=== PATIENT | female | born 1985 | race Caucasian/White ===

== ENCOUNTER 2016-12-31 23:35 | Emergency (ER) | payer BC ==
--- NOTE | 2017-01-01 00:10 | EDM.PDOC ---
ED HPI GENERAL MEDICAL PROBLEM - General Chief Complaint: General Stated Complaint: vag bleeding Time Seen by Provider: 12/31/16 23:52 Source of Information: Reports: Patient History Limitations: Reports: No Limitations - History of Present Illness INITIAL COMMENTS - FREE TEXT/NARRATIVE: Patient presents with complaint of vaginal bleeding 9 days s/p . The bleeding has been steady since she was in the hospital with her delivery. She is soaking 1-2 pads each day. She is concerned because tonight the blood looked bright red instead of darker like it has been recently. Also it had an odor. She denies any increase in amount or flow of blood. No vaginal drainage except the blood. She denies weakness or dysuria. She has had some occasions of pain along her abdominal incision. No fever. Abdomen Pain Score (Numeric/FACES): 2 - Related Data Allergies Allergy/AdvReac Type Severity Reaction Status Date / Time calcium carbonate [From Tums] Allergy Difficulty Verified 06/04/16 19:56 Swallowing prednisone Allergy Rash Verified 06/04/16 19:56 rifampin Allergy Rash Verified 06/04/16 19:56 control pill Allergy Intermediate Hallucinati Uncoded 06/07/16 11:55 ons Home Meds: Home Meds Sertraline [Zoloft] 50 mg PO BEDTIME 12/11/14 [History] Cholecalciferol (Vitamin D3) [Vitamin D3] 1 tab PO DAILY 05/20/16 [History] Past Medical History - Past Health History Medical/Surgical History: Denies Medical/Surgical History HEENT History: Reports: Impaired Vision Gastrointestinal History: Reports: Chronic Constipation, GERD Other Genitourinary History: yeast infection 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: Psychiatric History: Reports: Anxiety, Depression - Infectious Disease History Infectious Disease History: Reports: Chicken Pox - Past Surgical History GI Surgical History: Reports: Cholecystectomy, Colonoscopy Other Musculoskeletal Surgeries/Procedures:: Right knee fx and repair Social & Family History - Family History Cardiac: Reports: [place] Other Cardiac Family History: grandfather, x5 Psychiatric: Reports: Anxiety, Depression, Schizophrenia Endocrine/Metabolic: Reports: Diabetes, type II Oncologic: Reports: Breast, Ovarian, Other (See Below) Other Oncologic Family History: dad has skin ca, grandma breast - Tobacco Use Smoking Status *Q: Never Smoker Second Hand Smoke Exposure: No - Caffeine Use Caffeine Use: Reports: Coffee - Alcohol Use Days Per Week of Alcohol Use: 0 - Recreational Drug Use Recreational Drug Use: No ED ROS GENERAL - Review of Systems Review Of Systems: ROS reveals no pertinent complaints other than HPI. ED EXAM, GENERAL - Physical Exam Exam: See Below Exam Limited By: No Limitations General Appearance: Alert, WD/WN, No Apparent Distress Eye Exam: Bilateral Eye: EOMI, Normal Inspection, PERRL Ears: Normal External Exam, Hearing Grossly Normal Nose: Normal Inspection, No Blood Throat/Mouth: Normal Inspection, Normal Lips, Normal Voice, No Airway Compromise Head: Atraumatic, Normocephalic Neck: Normal Inspection, Full Range of Motion Respiratory/Chest: No Respiratory Distress, Lungs Clear, Normal Breath Sounds Cardiovascular: Regular Rate, Rhythm, No Murmur GI/Abdominal: Normal Bowel Sounds, Soft, No Organomegaly, No Distention, Tender (tender to palpate directly over the suprapubic incision.), Other (Recent- appearing transverse suprapubic incision consistent with caesarean that is healing very nicely with no erythema, drainage or dehiscence.) Back Exam: Normal Inspection, Full Range of Motion. No: CVA Tenderness (L), CVA Tenderness (R) Extremities: Normal Inspection Neurological: Alert, Oriented, Normal Cognition, Normal Gait, No Motor/Sensory Deficits Psychiatric: Normal Affect, Normal Mood Skin Exam: Warm, Dry, Intact, Normal Color, No Rash Course - Vital Signs Last Recorded V/S: Last Vital Signs Temp 97.5 F 01/01/17 00:23 Pulse 65 01/01/17 00:23 Resp 18 01/01/17 00:23 BP 135/80 01/01/17 00:23 Pulse Ox 97 01/01/17 00:23 - Orders/Labs/Meds Labs: Laboratory Tests 01/01/17 01/01/17 Range/Units 00:15 00:20 WBC 7.6 (5.0-10.0) 10^3/uL RBC 4.72 (3.80-5.50) 10^6/uL Hgb 13.0 (12.0-16.0) g/dL Hct 39.2 (37.0-47.0) % MCV 83.1 (82.0-92.0) fL MCH 27.5 (27.0-31.0) pg MCHC 33.1 (32.0-36.0) g/dL RDW 15.5 H (11.5-14.5) % Plt Count 402 H (150-300) 10^3/uL MPV 6.6 L (7.4-10.4) fL Neut % (Auto) 62.9 (50.0-70.0) % Lymph % (Auto) 22.3 (20.0-40.0) % [place] % (Auto) 10.2 H (2.0-8.0) % Eos % (Auto) 3.7 H (1.0-3.0) % Baso % (Auto) 0.9 (0.0-1.0) % Neut # (Auto) 4.7 (2.5-7.0) 10^3/uL Lymph # (Auto) 1.7 (1.0-4.0) 10^3/uL [place] # (Auto) 0.8 (0.1-0.8) 10^3/uL Eos # (Auto) 0.3 (0.1-0.3) 10^3/uL Baso # (Auto) 0.1 (0.0-0.1) 10^3/uL Specimen Type Urincc Urine Color Yellow (YELLOW) Urine Appearance Clear (CLEAR) Urine pH 5.5 (5.0-9.0) Ur Specific [place] 1.020 (1.005-1.030) Urine Protein Negative (NEGATIVE) mg/dL Urine Glucose (UA) Negative (NEGATIVE) mg/dL Urine Ketones Negative (NEGATIVE) mg/dL Urine Occult Blood Large H (NEGATIVE) Urine Nitrite Negative (NEGATIVE) Urine Bilirubin Negative (NEGATIVE) Urine Urobilinogen 0.2 (0.2-1.0) E.U./dL Ur Leukocyte Esterase Negative (NEGATIVE) Urine RBC 10-20 H /HPF Urine WBC 0-5 /HPF Ur Epithelial Cells Few /LPF - Re-Assessments/Exams Free Text/Narrative Re-Assessment/Exam: 01/01/17 00:45 UA shows hematuria but no sign of infection. CBC is normal with Hg 13.0. Discussed findings and recommendations with patient and she was discharged in stable condition. Departure - Departure Time of Disposition: 00:41 Disposition: Home, Self-Care 01 Condition: Good Clinical Impression: hemorrhage of vagina - Discharge Information Forms: ED Department Discharge Additional Instructions: 1. Keep track of bleeding amounts and number of soaked pads per day. 2. Follow up with your OB or PCP on Tuesday. 3. If bleeding exceeds 4 pads per day, or you develop fever, see your doctor right away or go to ER.
[2017-01-01 00:28] VITALS: BP 135/80
== END 2017-01-01 00:50 | disposition home or self-care (01) ==
LOC: KA.ED 23:35
DX: O72.1 Other immediate postpartum hemorrhage (principal); O99.345 Other mental disorders complicating the puerperium; H54.7 Unspecified visual loss; K21.9 Gastro-esophageal reflux disease without esophagitis; F32.9 Major depressive disorder, single episode, unspecified; Z90.49 Acquired absence of other specified parts of digestive tract; Z88.8 Allergy status to other drugs, medicaments and biological substances; Z79.899 Other long term (current) drug therapy; F41.9 Anxiety disorder, unspecified
CPT/HCPCS: 36415; 81001; 85025; 99284

== ENCOUNTER 2020-03-11 18:40 | Emergency (ER) | payer BC, OTHER ==
--- NOTE | 2020-03-11 18:57 | EDM.PDOC ---
ED HPI GENERAL MEDICAL PROBLEM - General Chief Complaint: Behavioral/Psych Stated Complaint: psychosis Time Seen by Provider: 03/11/20 18:57 Source of Information: Reports: Patient, Family History Limitations: Reports: No Limitations - History of Present Illness INITIAL COMMENTS - FREE TEXT/NARRATIVE: Rosa Maria Slaughter, 34-year-old female, was brought by her family members, and sister to the emergency department this evening. Her states that while he was driving home today she had called him stating she had made supper, done laundry, and was tired and was going to lay down. She sounded completely rational in her statements and discussion. When her arrived home, she was not in any of the beds and could not be found. He went into the bathroom and found her sleeping in the bathtub. He awoken her to ask what she was doing to which she stated "I have done my job, I am leaving,and going to kill myself." After getting out of the bathroom she had a ranch and when asked what she was doing she stated "the voices had told her that her foot was broken and she needed to take it off." When her commented that her wrench would not take her foot off she stated then she would go in the garage and get a saw. At this time he decided that she needed medical attention and she agreed to get in the car under the fact that they would be running an errand. On the way to the hospital she decided she no longer wanted to be in a car and try to get out causing him to well puller to the side of the road get her settled again in the car at which time they drove to her sister's home. Her Sister Jolene is an RN here at our facility and had her get in her van as they were going to drive up here to cherry picker operator papers. She was quite emotional upon her arrival with nursing staff but did come down significantly by the time my arrival to the department. She recalled the almost identical story to me when I asked what is been going on. I explained to her after my assessment that it would be beneficial if we ran a few tests to which she agreed upon. Onset: Today, Sudden Duration: Minutes: Location: Reports: Head - Related Data Allergies Allergy/AdvReac Type Severity Reaction Status Date / Time calcium carbonate [From Tums] Allergy Difficulty Verified 03/11/20 19:51 Swallowing prednisone Allergy Rash Verified 03/11/20 19:51 rifampin Allergy Rash Verified 03/11/20 19:51 triamcinolone Allergy Cannot Verified 03/11/20 19:51 Remember control pill Allergy Intermediate Hallucinati Uncoded 03/11/20 19:51 ons Home Meds: Home Meds Sertraline [Zoloft] 200 mg PO BEDTIME 12/11/14 [History] Cholecalciferol (Vitamin D3) [Vitamin D3] 1 tab PO DAILY 05/20/16 [History] Acetaminophen [Tylenol] 650 mg PO Q6H PRN 03/11/20 [History] Albuterol [Proventil Neb Soln] 0.63 mg NEB Q6H PRN 03/11/20 [History] Famotidine [Pepcid] 20 mg PO BEDTIME 03/11/20 [History] Ibuprofen 200 - 600 mg PO TID PRN 03/11/20 [History] L.acidoph,Paracasei, B.lactis [Probiotic] 1 cap PO DAILY 03/11/20 [History] Lurasidone [Latuda] 20 mg PO BEDTIME 03/11/20 [History] [place]-3/DHA/Epa/Fish Oil [[place] 3 500 Softgel] 2 cap PO DAILY 03/11/20 [History] busPIRone [Buspar] 5 mg PO BID 03/11/20 [History] busPIRone [Buspar] 10 mg PO BID 03/11/20 [History] hydrOXYzine pamoate [Vistaril] 25 mg PO Q6H PRN 03/11/20 [History] Past Medical History - Past Health History Medical/Surgical History: Denies Medical/Surgical History HEENT History: Reports: Impaired Vision Gastrointestinal History: Reports: Chronic Constipation, GERD Other 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: Psychiatric History: Reports: Anxiety, Depression, Schizophrenia - Infectious Disease History Infectious Disease History: Reports: Chicken Pox - Past Surgical History GI Surgical History: Reports: Cholecystectomy, Colonoscopy Other Musculoskeletal Surgeries/Procedures:: Right knee fx and repair Social & Family History - Family History Family Medical History: Noncontributory Cardiac: Reports: [place] Other Cardiac Family History: grandfather, x5 Psychiatric: Reports: Anxiety, Depression, Schizophrenia Endocrine/Metabolic: Reports: Diabetes, type II Oncologic: Reports: Breast, Ovarian, Other (See Below) Other Oncologic Family History: dad has skin ca, grandma breast - Caffeine Use Caffeine Use: Reports: Coffee ED ROS GENERAL - Review of Systems Review Of Systems: Comprehensive ROS is negative, except as noted in HPI. ED EXAM, GENERAL - Physical Exam Exam: See Below Free Text/Narrative:: Alert and conversive oriented to the hospital and knowing that her sister works here. When I asked her what was taking place she stated the voices had told her that her leg was broke and she needed to take her foot off. She also stated that she had been hearing voices on and off and stated that at one point, her sister was sitting next to her with a noose around her neck stating she was going with her. When I asked how many sisters she had she states 1 and points to Jolene. I am uncertain of what the name of her sister was that had a noose around her neck but it was not Jolene. She denies any intake of anything other than her regular medications. States she did laundry today and was making supper both of which were confirmed by her . There is no odor of alcohol drugs or any evidence of bodily injury during the examination. HEENT is negative discharge or deformity PERRLA no nystagmus, no icterus no injection. Extraocular motions intact. Moist mucous membranes Neck soft supple no lymphadenopathy no rigidity. Symmetry is noted during her speech with no deviation. Thorax is clear no wheezes or crackles are noted. Cardiac is S1-S2 no noted murmur. No flank pain no abdominal discomfort moves her extremities about while in a seated position. 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 I attempted to a Romberg and but which she has a straightened outstretched left upper extremity but the right bends at the elbow and droops as well as wrist droop with slight tremoring. I asked her to straighten the arm and tell her she has to hold her fingers at the same height to which she replies I am trying. Very weak both inward outward motion as well as up-and-down of outstretched extremity with a greater deficit to the right side as well as tremoring to the right upper extremity. Skin is warm and dry radial pulses are present capillary refill is intact. As lab and urine are obtained awaiting for results and CT is performed, she seems to become more coherent and does not refer to hearing voices at that time. By the time all results have arrived, stabilization of her mentation and senses occurs and has been appropriately visiting with her and sister. Contact is made to the [facility] call to see if her primary psychiatric doctors vice president of instruction, unfortunately he is not and there are no psychiatric beds available at the facility. Decision that she will go home with family members that her sister will in co njunction with her provide supervision throughout the night contacting [facility] service in the morning to discuss with her primary psychiatrist. Course - Vital Signs Last Recorded V/S: Last Vital Signs Temp 37.4 C 03/11/20 18:40 Pulse 87 03/11/20 18:40 Resp 18 03/11/20 18:40 BP 107/67 03/11/20 18:40 Pulse Ox 98 03/11/20 18:40 - Orders/Labs/Meds Orders: Active Orders 24 hr Category Date Time Status CULTURE URINE [RM] Stat Lab 03/11/20 19:10 Received Labs: Laboratory Tests 03/11/20 03/11/20 03/11/20 Range/Units 19:10 19:10 19:32 WBC (5.00-10.00) 10^3/uL RBC (3.80-5.50) 10^6/uL Hgb (12.0-16.0) g/dL Hct (37.0-47.0) % MCV (82.0-92.0) fL MCH (27.0-31.0) pg MCHC (32.0-36.0) g/dL RDW (11.5-14.5) % Plt Count (150-400) 10^3/uL MPV (7.4-10.4) fL Immature Gran % (Auto) (0.0-5.0) % Neut % (Auto) (50.0-70.0) % Lymph % (Auto) (20.0-40.0) % [place] % (Auto) (2.0-8.0) % Eos % (Auto) (1.0-3.0) % Baso % (Auto) (0.0-1.0) % Neut # (Auto) (2.50-7.00) 10^3/uL Lymph # (Auto) (1.00-4.00) 10^3/uL [place] # (Auto) (0.10-0.80) 10^3/uL Eos # (Auto) (0.10-0.30) 10^3/uL Baso # (Auto) (0.00-0.10) 10^3/uL Immature Gran # (Auto) (0.00-0.50) 10^3/uL Sodium 139 (136-145) mmol/L Potassium 3.4 (3.3-5.3) mmol/L Chloride 103 (98-115) mmol/L Carbon Dioxide 23.2 (21.0-32.0) mmol/L Anion Gap 16.2 H (5-15) mmol/L BUN 13 (6-25) mg/dL Creatinine 0.71 (0.51-1.17) mg/dL Est Cr Clr Drug Dosing 109.59 mL/min Estimated GFR (MDRD) > 60 mL/min Glucose 116 H (75 - 99) mg/dL Calcium 8.1 L (8.7-10.3) mg/dL Total Bilirubin 0.2 (0.2-1.0) mg/dL AST 15 (15-37) U/L ALT 16 (12-78) U/L Alkaline Phosphatase 90 (46-116) IU/L Total Protein 7.1 (6.4-8.2) g/dL Albumin 3.85 (3.00-4.80) g/dL Specimen Type Urincc Urine Color Yellow (YELLOW) Urine Appearance Slightly cloudy H (CLEAR) Urine pH 5.5 (5.0-9.0) Ur Specific [place] >= 1.030 (1.005-1.030) Urine Protein Negative (NEGATIVE) mg/dL Urine Glucose (UA) Negative (NEGATIVE) mg/dL Urine Ketones Negative (NEGATIVE) mg/dL Urine Occult Blood Small H (NEGATIVE) Urine Nitrite Negative (NEGATIVE) Urine Bilirubin Negative (NEGATIVE) Urine Urobilinogen 0.2 (0.2-1.0) E.U./dL Ur Leukocyte Esterase Trace H (NEGATIVE) Urine RBC 0-5 (0-5) /HPF Urine WBC 0-5 (0-5) /HPF Ur Epithelial Cells Few /LPF Urine Bacteria Few (NONE TO FEW) /HPF Urine Opiates Screen Negative (NEGATIVE) Ur Oxycodone Screen Negative (NEGATIVE) Urine Methadone Screen Negative (NEGATIVE) Ur Propoxyphene Screen Negative (NEGATIVE) Acetaminophen 0.0 L (10.0-30.0) ug/mL Ur Barbiturates Screen Negative (NEGATIVE) Ur Tricyclics Screen Negative (NEGATIVE) Ur Phencyclidine Scrn Negative (NEGATIVE) Ur Amphetamine Screen Negative (NEGATIVE) U Methamphetamines Scrn Negative (NEGATIVE) U Benzodiazepines Scrn Negative (NEGATIVE) U Cocaine Metab Screen Negative (NEGATIVE) U Marijuana (THC) Screen Negative (NEGATIVE) 03/11/20 Range/Units 19:32 WBC 9.22 (5.00-10.00) 10^3/uL RBC 5.06 (3.80-5.50) 10^6/uL Hgb 14.9 (12.0-16.0) g/dL Hct 43.0 (37.0-47.0) % MCV 85.0 (82.0-92.0) fL MCH 29.4 (27.0-31.0) pg MCHC 34.7 (32.0-36.0) g/dL RDW 13.0 (11.5-14.5) % Plt Count 279 (150-400) 10^3/uL MPV 8.8 (7.4-10.4) fL Immature Gran % (Auto) 0.1 (0.0-5.0) % Neut % (Auto) 71.3 H (50.0-70.0) % Lymph % (Auto) 18.5 L (20.0-40.0) % [place] % (Auto) 6.8 (2.0-8.0) % Eos % (Auto) 2.6 (1.0-3.0) % Baso % (Auto) 0.7 (0.0-1.0) % Neut # (Auto) 6.57 (2.50-7.00) 10^3/uL Lymph # (Auto) 1.71 (1.00-4.00) 10^3/uL [place] # (Auto) 0.63 (0.10-0.80) 10^3/uL Eos # (Auto) 0.24 (0.10-0.30) 10^3/uL Baso # (Auto) 0.06 (0.00-0.10) 10^3/uL Immature Gran # (Auto) 0.01 (0.00-0.50) 10^3/uL Sodium (136-145) mmol/L Potassium (3.3-5.3) mmol/L Chloride (98-115) mmol/L Carbon Dioxide (21.0-32.0) mmol/L Anion Gap (5-15) mmol/L BUN (6-25) mg/dL Creatinine (0.51-1.17) mg/dL Est Cr Clr Drug Dosing mL/min Estimated GFR (MDRD) mL/min Glucose (75 - 99) mg/dL Calcium (8.7-10.3) mg/dL Total Bilirubin (0.2-1.0) mg/dL AST (15-37) U/L ALT (12-78) U/L Alkaline Phosphatase (46-116) IU/L Total Protein (6.4-8.2) g/dL Albumin (3.00-4.80) g/dL Specimen Type Urine Color (YELLOW) Urine Appearance (CLEAR) Urine pH (5.0-9.0) Ur Specific [place] (1.005-1.030) Urine Protein (NEGATIVE) mg/dL Urine Glucose (UA) (NEGATIVE) mg/dL Urine Ketones (NEGATIVE) mg/dL Urine Occult Blood (NEGATIVE) Urine Nitrite (NEGATIVE) Urine Bilirubin (NEGATIVE) Urine Urobilinogen (0.2-1.0) E.U./dL Ur Leukocyte Esterase (NEGATIVE) Urine RBC (0-5) /HPF Urine WBC (0-5) /HPF Ur Epithelial Cells /LPF Urine Bacteria (NONE TO FEW) /HPF Urine Opiates Screen (NEGATIVE) Ur Oxycodone Screen (NEGATIVE) Urine Methadone Screen (NEGATIVE) Ur Propoxyphene Screen (NEGATIVE) Acetaminophen (10.0-30.0) ug/mL Ur Barbiturates Screen (NEGATIVE) Ur Tricyclics Screen (NEGATIVE) Ur Phencyclidine Scrn (NEGATIVE) Ur Amphetamine Screen (NEGATIVE) U Methamphetamines Scrn (NEGATIVE) U Benzodiazepines Scrn (NEGATIVE) U Cocaine Metab Screen (NEGATIVE) U Marijuana (THC) Screen (NEGATIVE) - Re-Assessments/Exams Free Text/Narrative Re-Assessment/Exam: 03/11/20 21:29 No interventions nor medications were required during the assessment work-up phase. Family members agree as her primary is not available vice president of instruction from [facility] and no beds available that they would assume care taking her home with them this evening. Departure - Departure Time of Disposition: 20:41 Disposition: Home, Self-Care 01 Condition: Good Clinical Impression: Anxiety and depression, Hallucinations Schizophrenia Qualifiers: Schizophrenia type: unspecified Qualified Code(s): F20.9 - Schizophrenia, unspecified - Discharge Information *PRESCRIPTION DRUG MONITORING PROGRAM REVIEWED*: Not Applicable *COPY OF PRESCRIPTION DRUG MONITORING REPORT IN PATIENT LUIS: Not Applicable Instructions: Major Depressive Disorder, Adult, [id number], Schizophrenia, Living With Anxiety Referrals: Richardson Coleman MD [Ordering Only Provider] - Forms: ED Department Discharge Additional Instructions: You need to continue all of your medications as directed. Decrease and avoid excess caffeine. You will spend the night with your sister in contact Dr. Coleman in the morning to discuss the occurrence tonight. If you have another flareup before then you need to consider coming back to the emergency department. When you go to the [facility] to see your regular provider, you need to mention to them your sleep patterns and the possibility of having a sleep study performed. Call or return if any concerns arise. Sepsis Event Note (ED) - Focused Exam Vital Signs: Vital Signs Temp Pulse Resp BP Pulse Ox 03/11/20 18:40 37.4 C 87 18 107/67 98 - Problem List & Annotations (1) Anxiety and depression SNOMED Code(s): 399005964 Code(s): F41.9 - ANXIETY DISORDER, UNSPECIFIED; F32.9 - MAJOR DEPRESSIVE DISORDER, SINGLE EPISODE, UNSPECIFIED Status: Chronic Priority: High (2) Schizophrenia SNOMED Code(s): 73029032 Code(s): F20.9 - SCHIZOPHRENIA, UNSPECIFIED Status: Chronic Priority: High Qualifiers: Schizophrenia type: unspecified Qualified Code(s): F20.9 - Schizophrenia, unspecified - Problem List Review Problem List Initiated/Reviewed/Updated: Yes - My Orders Last 24 Hours: My Active Orders 03/11/20 19:10 CULTURE URINE [RM] Stat - Assessment/Plan Last 24 Hours: My Active Orders 03/11/20 19:10 CULTURE URINE [RM] Stat Plan: You need to continue all of your medications as directed. Decrease and avoid excess caffeine. You will spend the night with your sister in contact Dr. Coleman in the morning to discuss the occurrence tonight. If you have another flareup before then you need to consider coming back to the emergency department. When you go to the [facility] to see your regular provider, you need to mention to them your sleep patterns and the possibility of having a sleep study performed. Call or return if any concerns arise.
[2020-03-11 19:07] VITALS: BP 107/67; PULSE 87
[2020-03-11 19:52] LABS: BARBITURATE SCREEN,URINE NEGATIVE (NEGATIVE); BENZODIAZEPINES SCREEN,URINE NEGATIVE (NEGATIVE); TCA SCREEN,URINE NEGATIVE (NEGATIVE); THC SCREEN,URINE 50 NG/ML NEGATIVE (NEGATIVE)
[2020-03-11 19:58] LABS: ANION GAP 16.2 mmol/L (5-15); CHLORIDE,CL 103 mmol/L (98-115); SODIUM,NA 139 mmol/L (136-145)
--- NOTE | 2020-03-11 20:21 | CT ---
[id number] CT/CT Head WO IV EXAM: CT Head WO IV CLINICAL DATA: IMBALANCE COMPARISON STUDY: November 23, 2008 FINDINGS: No intracranial hemorrhage, extra-axial fluid collection, mass, or acute ischemia. Soft tissues are unremarkable. Paranasal sinuses and mastoid air cells are clear. IMPRESSION: No acute intracranial findings. Kash Cabral DO 03/12/20 [id number] Thank you for allowing us to participate in the care of your patient.
== END 2020-03-11 20:47 | disposition home or self-care (01) ==
LOC: KA.ED 18:40
DX: F41.9 Anxiety disorder, unspecified (principal); F32.9 Major depressive disorder, single episode, unspecified; F20.9 Schizophrenia, unspecified; K21.9 Gastro-esophageal reflux disease without esophagitis; Z90.49 Acquired absence of other specified parts of digestive tract; Z91.09 Other allergy status, other than to drugs and biological substances; Z88.8 Allergy status to other drugs, medicaments and biological substances; Z88.1 Allergy status to other antibiotic agents; Z79.899 Other long term (current) drug therapy
CPT/HCPCS: 36415; 70450; 80053; 80305-QW; 80307; 81001; 85025; 87086; 99285; 99285-25

== ENCOUNTER 2020-06-26 15:31 | Emergency (ER) | payer BC ==
[2020-06-26] MEDS ORDERED: Sodium Chloride 0.9% 10 ML Syringe FLUSH PRN (16:01)
[2020-06-26 16:31] VITALS: BP 108/78; PULSE 88
[2020-06-26 16:32] LABS: ANION GAP 9.7 mmol/L (5-15); CHLORIDE,CL 103 mmol/L (98-107); SODIUM,NA 136 mmol/L (136-145)
--- NOTE | 2020-06-26 16:43 | EDM.PDOC ---
ED HPI GENERAL MEDICAL PROBLEM - General Chief Complaint: General Stated Complaint: COVID Time Seen by Provider: 06/26/20 16:04 Source of Information: Reports: Patient History Limitations: Reports: No Limitations - History of Present Illness INITIAL COMMENTS - FREE TEXT/NARRATIVE: Patient presents with wheezing that started today. She also got results on her Covid test about 5 hours ago from 2 days earlier. She was tested because her was positive. She has asthma but hasn't used her inhaler for awhile and doesn't have one currently. - Related Data Allergies Allergy/AdvReac Type Severity Reaction Status Date / Time calcium carbonate [From Tums] Allergy Difficulty Verified 06/26/20 16:00 Swallowing rifampin Allergy Rash Verified 06/26/20 16:00 triamcinolone Allergy Cannot Verified 06/26/20 16:00 Remember control pill Allergy Intermediate Hallucinati Uncoded 06/26/20 16:00 ons Home Meds: Home Meds Sertraline [Zoloft] 200 mg PO BEDTIME 12/11/14 [History] Cholecalciferol (Vitamin D3) [Vitamin D3] 1 tab PO DAILY 05/20/16 [History] Acetaminophen [Tylenol] 650 mg PO Q6H PRN 03/11/20 [History] Albuterol [Proventil Neb Soln] 0.63 mg NEB Q6H PRN 03/11/20 [History] Famotidine [Pepcid] 20 mg PO BEDTIME 03/11/20 [History] Ibuprofen 200 - 600 mg PO TID PRN 03/11/20 [History] L.acidoph,Paracasei, B.lactis [Probiotic] 1 cap PO DAILY 03/11/20 [History] Lurasidone [Latuda] 20 mg PO BEDTIME 03/11/20 [History] [place]-3/DHA/Epa/Fish Oil [[place] 3 500 Softgel] 2 cap PO DAILY 03/11/20 [History] busPIRone [Buspar] 5 mg PO BID 03/11/20 [History] busPIRone [Buspar] 10 mg PO BID 03/11/20 [History] hydrOXYzine pamoate [Vistaril] 25 mg PO Q6H PRN 03/11/20 [History] Past Medical History - Past Health History Medical/Surgical History: Denies Medical/Surgical History HEENT History: Reports: Impaired Vision Gastrointestinal History: Reports: Chronic Constipation, GERD Other Genitourinary History: yeast infection [employer] 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: Neurological History: Reports: Migraines, Other (See Below) Psychiatric History: Reports: Anxiety, Depression, Schizophrenia Hematologic History: Reports: Anemia - Infectious Disease History Infectious Disease History: Reports: Chicken Pox - Past Surgical History GI Surgical History: Reports: Cholecystectomy, Colonoscopy Other Musculoskeletal Surgeries/Procedures:: Right knee fx and repair Social & Family History - Family History Family Medical History: No Pertinent Family History Cardiac: Reports: OR Other Cardiac Family History: grandfather, x5 Psychiatric: Reports: Anxiety, Depression, Schizophrenia Endocrine/Metabolic: Reports: Diabetes, type II Oncologic: Reports: Breast, Ovarian, Other (See Below) Other Oncologic Family History: dad has skin ca, grandma breast - Tobacco Use Tobacco Use Status *Q: Never Tobacco User - Caffeine Use Caffeine Use: Reports: Coffee, Tea - Recreational Drug Use Recreational Drug Use: No ED ROS GENERAL - Review of Systems Review Of Systems: See Below Constitutional: Reports: Chills. Denies: Fever, Malaise, Weakness HEENT: Denies: Ear Pain, Throat Pain, Vision Change Respiratory: Reports: Wheezing. Denies: Shortness of Breath, Cough Cardiovascular: Denies: Chest Pain, Lightheadedness, Syncope GI/Abdominal: Denies: Abdominal Pain, Diarrhea, Vomiting : Denies: Dysuria, Flank Pain Musculoskeletal: Denies: Neck Pain, Shoulder Pain, Arm Pain, Back Pain, Hand Pain Skin: Denies: Cyanosis, Jaundice, Mottled, Pallor, Diaphoresis Neurological: Denies: Confusion, Dizziness, Headache, Seizure, Syncope, Trouble Speaking, Difficulty Walking Psychiatric: Denies: Agitation, Anxiety, Confusion ED EXAM, GENERAL - Physical Exam Exam: See Below Exam Limited By: No Limitations General Appearance: Alert, WD/WN, No Apparent Distress Eye Exam: Bilateral Eye: EOMI, Normal Inspection, PERRL Ears: Normal External Exam, Hearing Grossly Normal Nose: Normal Inspection, No Blood Throat/Mouth: Normal Inspection, Normal Lips, Normal Voice, No Airway Compromise Head: Atraumatic, Normocephalic Neck: Normal Inspection, Full Range of Motion Respiratory/Chest: No Respiratory Distress, Lungs Clear, Normal Breath Sounds Cardiovascular: Regular Rate, Rhythm, No Murmur GI/Abdominal: Normal Bowel Sounds, Soft, Non-Tender Back Exam: Normal Inspection, Full Range of Motion. No: CVA Tenderness (L), CVA Tenderness (R) Extremities: Normal Inspection, Normal Range of Motion Neurological: Alert, Oriented, Normal Cognition, No Motor/Sensory Deficits Psychiatric: Normal Affect, Normal Mood Skin Exam: Warm, Dry, Intact, Normal Color, No Rash Course - Vital Signs Last Recorded V/S: Last Vital Signs Temp 97 F 06/26/20 15:50 Pulse 88 06/26/20 15:50 Resp 11 L 06/26/20 15:50 BP 108/78 06/26/20 15:50 Pulse Ox 99 06/26/20 15:50 - Orders/Labs/Meds Orders: Active Orders 24 hr Category Date Time Status Peripheral IV Care [RC] . DIRECTED Care 06/26/20 16:02 Active RT Post Treatment Assessment [RC] Click to Edit Care 06/26/20 17:04 Active RT Pre-Treatment Assessment [RC] Click to Edit Care 06/26/20 17:04 Active Sodium Chloride 0.9% [Saline Flush] Med 06/26/20 16:01 Active 10 ml FLUSH Q8HR PRN Peripheral IV Insertion Adult [OM.PC] Routine Oth 06/26/20 16:01 Ordered Medication Orders Sodium Chloride (Saline Flush) 10 ml FLUSH Q8HR PRN PRN Reason: keep vein open Labs: Laboratory Tests 06/26/20 06/26/20 Range/Units 15:40 15:40 WBC 4.00 L (5.00-10.00) 10^3/uL RBC 4.99 (3.80-5.50) 10^6/uL Hgb 14.8 (12.0-16.0) g/dL Hct 43.3 (37.0-47.0) % MCV 86.8 (82.0-92.0) fL MCH 29.7 (27.0-31.0) pg MCHC 34.2 (32.0-36.0) g/dL RDW 13.5 (11.5-14.5) % Plt Count 283 (150-400) 10^3/uL MPV 9.2 (7.4-10.4) fL Immature Gran % (Auto) 0.3 (0.0-5.0) % Neut % (Auto) 50.8 (50.0-70.0) % Lymph % (Auto) 29.0 (20.0-40.0) % [place] % (Auto) 14.8 H (2.0-8.0) % Eos % (Auto) 4.3 H (1.0-3.0) % Baso % (Auto) 0.8 (0.0-1.0) % Neut # (Auto) 2.04 L (2.50-7.00) 10^3/uL Lymph # (Auto) 1.16 (1.00-4.00) 10^3/uL [place] # (Auto) 0.59 (0.10-0.80) 10^3/uL Eos # (Auto) 0.17 (0.10-0.30) 10^3/uL Baso # (Auto) 0.03 (0.00-0.10) 10^3/uL Immature Gran # (Auto) 0.01 (0.00-0.50) 10^3/uL Sodium 136 (136-145) mmol/L Potassium 3.8 (3.5-5.1) mmol/L Chloride 103 (98-107) mmol/L Carbon Dioxide 27.1 (21.0-32.0) mmol/L Anion Gap 9.7 (5-15) mmol/L BUN 11 (7-18) mg/dL Creatinine 0.70 (0.51-1.17) mg/dL Est Cr Clr Drug Dosing 110.12 mL/min Estimated GFR (MDRD) > 60 mL/min Glucose 84 (70-140) mg/dL Calcium 8.4 L (8.7-10.3) mg/dL Total Bilirubin 0.2 (0.2-1.0) mg/dL AST 19 (15-37) U/L ALT 28 (14-63) U/L Alkaline Phosphatase 91 (46-116) U/L Total Protein 7.1 (6.4-8.2) g/dL Albumin 3.69 (3.40-5.00) g/dL Meds: Medications Generic Name Dose Route Start Last Admin Trade Name Freq PRN Reason Stop Dose Admin Sodium Chloride 10 ml 06/26/20 16:01 Saline Flush FLUSH Q8HR PRN keep vein open Discontinued Medications Generic Name Dose Route Start Last Admin Trade Name Freq PREmil Reason Stop Dose Admin Albuterol 1 gm 06/26/20 16:58 06/26/20 17:09 Ventolin Hfa INH 06/26/20 16:59 1 gm ONETIME ONE Administration - Re-Assessments/Exams Free Text/Narrative Re-Assessment/Exam: 06/26/20 17:06 CXR is clear. Discussed findings and recommendations with patient. She is discharged to home in stable condition. Departure - Departure Time of Disposition: 17:18 Disposition: Home, Self-Care 01 Condition: Good Clinical Impression: COVID-19 - Discharge Information Instructions: COVID-19 Frequently Asked Questions Referrals: Rosaline Diaz PA-C [Primary Care Provider] - Forms: ED Department Discharge Additional Instructions: Drink 8 cups of water daily. Use the albuterol inhaler as directed when needed. Oral Vitamin C, Zinc, and Vitamin D3 daily may be helpful also. Follow up with your PCP, or ER, if any worsening or if you fail to improve as expected over the next couple weeks. Sepsis Event Note (ED) - Evaluation Sepsis Screening Result: No Definite Risk - Focused Exam Vital Signs: Vital Signs Temp Pulse Resp BP Pulse Ox 06/26/20 15:50 97 F 88 11 L 108/78 99 - My Orders Last 24 Hours: My Active Orders 06/26/20 16:01 Sodium Chloride 0.9% [Saline Flush] 10 ml FLUSH Q8HR PRN Peripheral IV Insertion Adult [OM.PC] Routine 06/26/20 16:02 Peripheral IV Care [RC] . DIRECTED 06/26/20 17:04 RT Post Treatment Assessment [RC] Click to Edit RT Pre-Treatment Assessment [RC] Click to Edit - Assessment/Plan Last 24 Hours: My Active Orders 06/26/20 16:01 Sodium Chloride 0.9% [Saline Flush] 10 ml FLUSH Q8HR PRN Peripheral IV Insertion Adult [OM.PC] Routine 06/26/20 16:02 Peripheral IV Care [RC] . DIRECTED 06/26/20 17:04 RT Post Treatment Assessment [RC] Click to Edit RT Pre-Treatment Assessment [RC] Click to Edit
[2020-06-26] MEDS ORDERED: Albuterol 8 GM Inhaler INH ONE (16:58)
--- NOTE | 2020-06-26 16:58 | CR ---
[id number] RAD/RAD Chest PA or AP 1V EXAM: SINGLE VIEW CHEST. INDICATION: SHORTNESS OF BREATH COMPARISON: CORRELATION IS MADE WITH SEPTEMBER 11, 2014 FINDINGS: The lungs are clear The cardiac silhouette is stable There is no pneumothorax IMPRESSION: NO ACUTE PROCESS Tye Limon MD 06/26/20 [id number] Thank you for allowing us to participate in the care of your patient.
== END 2020-06-26 17:59 | disposition home or self-care (01) ==
LOC: KA.ED 15:31
DX: U07.1 COVID-19 (principal); K21.9 Gastro-esophageal reflux disease without esophagitis; F41.9 Anxiety disorder, unspecified; F32.9 Major depressive disorder, single episode, unspecified; Z88.8 Allergy status to other drugs, medicaments and biological substances; Z88.1 Allergy status to other antibiotic agents; Z79.899 Other long term (current) drug therapy
CPT/HCPCS: 36415; 71045; 80053; 85025; 99285; A9270; 99284

== ENCOUNTER 2022-10-30 15:15 | Emergency (ER) | payer BC ==
[2022-10-30] MEDS: Ketorolac 30 MG/ML SDV IM ONE (15:41)
[2022-10-30 16:29] VITALS: BP 120/83; PULSE 83
== END 2022-10-30 16:30 | disposition home or self-care (01) ==
LOC: KA.ED 15:15
DX: S86.111A Strain of other muscle(s) and tendon(s) of posterior muscle group at lower leg level, right leg, initial encounter (principal); Z88.8 Allergy status to other drugs, medicaments and biological substances; X50.1XXA Overexertion from prolonged static or awkward postures, initial encounter
CPT/HCPCS: 73590-RT; 96372; 99283; J1885

== ENCOUNTER 2023-06-07 08:39 | Day surgery (SDC) | payer BC ==
[2023-06-07] MEDS ORDERED: Lactated Ringers 1,000 ML IV SCH (08:45)
[2023-06-07] MEDS ORDERED: Sodium Chloride 0.9% 10 ML Syringe FLUSH PRN (08:45)
[2023-06-07] MEDS ORDERED: Lidocaine 2% 5 ML SDV ONE (10:14)
[2023-06-07] MEDS ORDERED: Propofol 200 MG/20 ML SDV ONE (10:14)
[2023-06-07] MEDS ORDERED: Glycopyrrolate 0.2 MG/ML SDV ONE (10:14)
[2023-06-07] MEDS ORDERED: Midazolam 1 MG/ML 2 ML SDV ONE (10:14)
[2023-06-07 11:54] VITALS: BP 113/76; PULSE 76
== END 2023-06-07 12:15 | disposition home or self-care (01) ==
LOC: KA.SDS 08:39
PROVIDERS: ATTEND Surgery
DX: K29.50 Unspecified chronic gastritis without bleeding (principal); K21.00 Gastro-esophageal reflux disease with esophagitis, without bleeding; Z79.899 Other long term (current) drug therapy; Z88.8 Allergy status to other drugs, medicaments and biological substances
CPT/HCPCS: 00750; 81025; J2250; J2704; J3490; J7120

== ENCOUNTER 2025-01-10 19:03 | Emergency (ER) | payer BC ==
[2025-01-10] MEDS: hydrOXYzine HCl 50 MG/ML SDV IM ONE (19:18)
[2025-01-10 19:42] VITALS: BP 131/85; PULSE 84
== END 2025-01-10 19:48 | disposition home or self-care (01) ==
LOC: KA.ED 19:03
DX: L29.9 Pruritus, unspecified (principal); J45.909 Unspecified asthma, uncomplicated; Z88.8 Allergy status to other drugs, medicaments and biological substances; Z79.899 Other long term (current) drug therapy
CPT/HCPCS: 96372; 99282; A9270-GY; J3410